=== PATIENT | female | born 1965 | race Hispanic/Latino ===

== ENCOUNTER 2016-11-02 12:55 | Outpatient (CLI) | payer BC, OTHER ==
--- NOTE | 2016-11-02 16:37 | Ultrasound Report ---
LEFT DIGITAL DIAGNOSTIC MAMMOGRAM and LEFT BREAST ULTRASOUND: 11/02/16 12:55:00 CLINICAL: Recalled for asymmetries. COMPARISON:09/14/16 screening FINDINGS: Lateralmedial and spot compression MLO and CC views were performed. A low-density circumscribed asymmetries persist. Ultrasound of the left breast (including all four quadrants and the retroareolar area) was performed and demonstrated to benign cysts at 12 o'clock correlate with the mammographic densities. They are described to be next to the nipple and I assume this means at the areola. The larger cyst measures 1.0 x 1.0 x 1.2 cm and the smaller cyst measures 0.9 x 0.9 x 0.6 cm. No solid mass. IMPRESSION: Benign cysts left breast. BI-RADS CATEGORY: 2 - - Benign RECOMMENDATION: Routine mammographic screening in one year. ACR BI-RADS MAMMOGRAPHIC CODES: 0 = Needs additional imaging evaluation; 1 = Negative; 2 = Benign; 3 = Probably benign; 4 = Suspicious; 5 = Malignant; 6 = Known biopsy-proven malignancy COMMENT: 1. Dense breast tissue, i.e., adenosis, fibrocystic changes, etc., may obscure an underlying neoplasm. 2. Approximately 10% of cancers are not detected with mammography. 3. A negative mammography report should not delay biopsy if a clinically suspicious mass is present. COMMENT: Patient follow-up letters are generated via our [employer] application.
== END 2016-11-02 12:56 | disposition home or self-care (01) ==
LOC: MAMMO 12:55
DX: N60.02 Solitary cyst of left breast (principal); R92.8 Other abnormal and inconclusive findings on diagnostic imaging of breast
CPT/HCPCS: 76641; G0206